=== PATIENT | female | born 1950 | race Caucasian/White ===

== ENCOUNTER 2023-07-07 19:12 | Inpatient (IN) | payer OTHER, SELFPAY ==
[2023-07-07 14:45] VITALS: BP 139/88; PULSE 103; RESP 18; TEMP 36.6; O2SAT 98
[2023-07-07 15:09] VITALS: BMI 32.7
[2023-07-07 15:30] VITALS: BP 144/99; PULSE 99; RESP 16; TEMP 36.7; O2SAT 98
--- NOTE | 2023-07-07 19:14 | PCM.HP.STD ---
HPI - General General Date of Admission: 07/07/23 HPI Narrative DEBBIE CARDENAS, is a 72 F who presents to the hospital with palpitations for about 1 week. She presented to an outside hospital and was there overnight pending transfer to a different facility and was found to be in A-fib with RVR. She was started on a heparin drip as well as a Cardizem drip and this morning was excepted and transferred to our hospital. She denies any palpitations currently and it appears that her RVR had resolved though she is still in A-fib. They were able to do an echo at the outside hospital which was reported as normal however still trying to obtain the report for verification. She does have a history of hypertension but she does not take any blood pressure medications because it made her feel funny. [facility], [facility] Medical History (Updated 07/07/23 @ 19:[address] Cristiano Matamoros MD) Hypertension Allergy/AdvReac Type Severity Reaction Status Date / Time No Known Allergies Allergy Verified 07/07/23 15:29 Family History (Updated 07/07/23 @ 19:[address] Crisitano Matamoros MD) Other Heart disease Family History no significant family his Surgical History no surgical history no surgical history Social History Smoking Status: Never smoker ROS Constitutional Constitutional: Denies chills, fatigue, fever(s) or malaise Eyes Eyes: Denies blurry vision ENT HEENT: Denies headache(s) or nasal discharge Cardiovascular Cardiovascular: Reports palpitations; Denies chest pain, dyspnea on exertion or syncope Respiratory/Chest Respiratory/Chest: Denies cough, shortness of breath at rest or shortness of breath with exertion Gastrointestinal Gastrointestinal: Denies constipation, diarrhea, nausea or vomiting Genitourinary Genitourinary: Denies dysuria Neurologic Neurologic: Denies focal weakness, numbness or tremor(s) Psychiatric Psychiatric: Denies anxiety or depression Vital Signs Vital Signs Vital Signs: 07/07/23 14:45 07/07/23 15:30 Temperature 97.8 F 98.1 F Temperature Source Temporal Oral Pulse Rate 103 H 99 Respiratory Rate 18 16 Blood Pressure 139/88 H 144/99 H Blood Pressure Mean 105 114 Blood Pressure Source Monitor Monitor Blood Pressure Position Semi-Fowlers Sitting Blood Pressure Location Left Arm Left Arm Pulse Ox 98 98 Oxygen Delivery Method Room Air Room Air Weight Weight: 196 lb 13.965 oz Body Mass Index (BMI) 32.7 Physical Exam Narrative General: Alert, Oriented x3, Cooperative, No apparent distress HEENT: Atraumatic, PERRLA, EOMI, Normocephalic Oral: Moist Mucosa Neck: Supple, No JVD Lungs: Diminished, Normal air movement, No rhonchi, No wheeze, No rales Cardiovascular: Irregular rate and rhythm, Normal S1, Normal S2, No murmurs Abdomen: Soft, Non Tender, Non-Distended, No Hepato-splenomegaly Extremities: No edema, Capillary Refill Less than 3 Seconds Skin: No rashes, No breakdown Musculoskeletal: No Tenderness to Palpation of Joints or Extremities Neurological: Cranial nerves II-XII grossly intact, Motor Exam 5/5 strength throughout, Sensory exam intact to light touch and pain Psych/Mental Status: Normal Affect, Appropriate Assessment & Plan Assessment/Plan (1) New onset a-fib: PLAN: Plan 1. New onset A-fib with RVR ? Currently out of RVR though still in A-fib ? Continue with Coreg twice daily ? Given her age and her gender and her history of hypertension we will start her on twice daily dosing of Eliquis ? Outside lab work demonstrated normal TSH and her potassium has been replaced this morning it was 2.9 will monitor tomorrow, phosphorus and magnesium were also normal DVT: Eliquis 78 minutes was spent on direct patient care, including documentation as well as chart review and collaboration with colleagues Charges/Coding Visit Charges Inpatient E&M: 12032 Init Hosp L3
[2023-07-07] MEDS: Carvedilol 6.25 MG Tablet PO (21:03)
[2023-07-07] MEDS: APIXABAN 5 MG TABLET PO (21:03)
[2023-07-07 21:59] VITALS: BP 145/105; PULSE 85; RESP 16; TEMP 36.3; O2SAT 94
[2023-07-08 04:00] VITALS: BP 151/110; PULSE 86; RESP 18; TEMP 36.1; O2SAT 95
[2023-07-08 06:05] LABS: Absolute Lymphocyte Count 1.36 X10^3/uL (0.83-4.51); Absolute Neutrophil Count 3.5 X10^3/uL (2.0-7.7); Basophil# 0.03 X10^3/uL; Basophil% 0.5 % (0-1); Eosinophil# 0.13 X10^3/uL; Eosinophils% 2.4 % (0-5); Hematocrit 38.5 % (37-47); Hemoglobin 12.5 g/dL (12.0-15.0); Lymphocyte # 1.36 X10^3/ul (0.83-4.51); Lymphocyte % 24.7 % (19-41); Mean Corp Hgb Conc 32.5 g/dL (32-36); Mean Corpuscular Hgb 29.1 pg (27.0-32.0); Mean Corpuscular Volume 89.5 fL (81-99); Mean Platelet Vol. 11.3 fl (6.2-12.0); Monocyte# 0.48 X10^3/uL; Monocyte% 8.7 % (0-10); NRBC Flagged by Analyzer 0 % (0-5); Neutrophil # 3.49 X10^3/uL (2.7-7.7); Neutrophil % 63.5 % (47-70); Platelet Count 173 K/mm3 (150-450); RBC Distribution Width CV 14.4 % (11.6-14.6); RBC Distribution Width SD 46.4 fl (35.1-43.9); White Blood Count 5.5 K/mm3 (4.4-11.0)
[2023-07-08 07:03] LABS: Anion Gap 5 (5-15); BUN 14 mg/dL (7-18); BUN/Creat Ratio 19.9 RATIO (10-20); Calcium,Total 8.5 mg/dL (8.5-10.1); Chloride 108 mmol/L (98-107); EST Glomerular Filtration Rate 87 mL/min (>60); Est Glom Filt Rate - Afr Amer 105 mL/min (>60); Estimated Creatinine Clearance 46.43 ml/min; Glucose 118 mg/dL (74-106); Potassium 2.7 mmol/L (3.5-5.1); Sodium Level 141 mmol/L (136-145)
[2023-07-08 09:50] VITALS: BP 161/88; PULSE 105; RESP 18; TEMP 36.7; O2SAT 96
[2023-07-08] MEDS: Potassium Chloride Oral Tablet 20 MEQ 80 MEQ PO (09:55)
[2023-07-08] MEDS: Carvedilol 12.5 MG Tablet PO (09:56)
[2023-07-08] MEDS: APIXABAN 5 MG TABLET PO (09:56)
--- NOTE | 2023-07-08 10:30 | CASEMGMT ---
SEEMA FLOREZ Discharge Planning Assessment: Face to Face with patient for initial transition planning/care coordination assessment. SEEMA FLOREZ introduced self and role at [facility], pt alert, voices understanding and is agreeable to participating in the assessment with her son at bedside. Care providers, pharmacy, and demographics verified. Admitting dx: Afib PCP: Dariel Specialists: none Preferred Pharmacy: [facility] in [place] Insurance: [employer] Prescription Benefit: yes LNOK: spouse, son Tobi Living Arrangements: Pt lives with her spouse and handicapped 39yo daughter in a single story home with one small step to enter. Pt states she is independent with all ADLs including self care and household tasks. Transportation: Pt's daughter transports her when needed or they use their golf cart to go short distances DME: none HHC/SNF: denies any previous providers Discussed new prescription for Eliquis and 30 day free card provided to pt. Plan: Return home with the support of her family Annette Kellogg RN CM
--- NOTE | 2023-07-08 13:10 | PN.HOSP_ITS ---
Reason for Visit Reason for Visit: Diagnoses Unspecified atrial fibrillation (07/07/23) Subjective Subjective Patient seen at bedside this morning, son present. Patient was resting comfortably in bed, had no acute concerns. She feels well and ready to go home. She reports intermittent palpitations but is much improved from prior to this admission. She has been tolerating the beta-noel medication well. She denies any lightheadedness or dizziness with standing. Denies any chest pain, shortness of breath or fevers/chills. No other acute concerns. Objective Data Objective Data Vital Signs: Vital Signs Temp Pulse Resp BP Pulse Ox O2 Del Method 98.1 F 105 H 18 161/88 H 96 Nasal Cannula 07/08/23 09:50 07/08/23 09:50 07/08/23 09:50 07/08/23 09:50 07/08/23 09:50 07/08/23 09:50 Oxygen Delivery Method Nasal Cannula Weight: 89.3 kg Body Mass Index (BMI) 32.7 Intake & Output: Intake and Output for Last 24 Hours 07/06/23 07/07/23 07/08/23 23:59 23:59 23:59 Intake Total 240 / 240 Balance 240 / 240 Lab / Micro Data Attestation: I reviewed the patient's lab results. 07/08/23 05:35 07/08/23 05:35 Labs: Laboratory Results - last 24 hr 07/08/23 05:35: WBC 5.5, RBC 4.30, Hgb 12.5, Hct 38.5, MCV 89.5, MCH 29.1, MCHC 32.5, RDW Std Deviation 46.4 H, RDW Coeff of Florin 14.4, Plt Count 173, MPV 11.3, Immature Gran % (Auto) 0.200, Neut % (Auto) 63.5, Lymph % (Auto) 24.7, Esmeralda % (Auto) 8.7, Eos % (Auto) 2.4, Baso % (Auto) 0.5, Absolute Neuts (auto) 3.5, Absolute Lymphs (auto) 1.36, Nucleated RBC % 0, Sodium 141, Potassium 2.7 L*, Chloride 108 H, Carbon Dioxide 28.0, Anion Gap 5, BUN 14, Creatinine 0.70, Estim Creat Clear Calc 46.43, Est GFR (MDRD) Af Amer 105, Est GFR (MDRD) Non-Af 87, BUN/Creatinine Ratio 19.9, Glucose 118 H, Calcium 8.5 Physical Exam Const alert, oriented x3, no apparent distress, average body habitus, no limitations, healthy appearing and well nourished Constitutional Narrative: Pleasant elderly female, resting comfortably in bed, conversing normally, no acute distress. General Appearance: cooperative, comfortable, well kempt and well developed HEENT normocephalic, head/scalp atraumatic, hearing grossly normal bilaterally, nasal mucous membranes and turbinates normal and moist oral mucous membranes Eyes PERRL, EOMs intact bilaterally and conjunctivae normal Neck full ROM and supple Chest inspection of chest normal Resp normal respiratory effort, normal air movement, no use of accessory muscles and clear to auscultation bilaterally Cardio no murmurs and peripheral pulses 2+ throughout Cardio Narrative: Irregular rhythm noted, rate controlled. GI normal to inspection, nondistended, normoactive bowel sounds, soft to palpation, non-tender and non-distended Back/Spine normal ROM Extremity normal to inspection, full ROM and no pedal edema Skin no rashes or lesions noted Psych mental status grossly normal Assessment & Plan Assessment/Plan (1) New onset a-fib: PLAN: Plan Patient is a 72-year-old female with no significant past medical history who initially presented to an outside hospital for a 1 week history of palpitations. Was found to have new onset A-fib with RVR, was transferred to [facility] on 07/07 for further management. 1. New onset A-fib with RVR -Initiated on a Cardizem drip at outside hospital with good rate control. S tarted on Coreg twice daily on admission here. Remains in A-fib but is rate controlled. TSH normal. [id number] score of 3, started on Eliquis twice daily here. Remains hypertensive as noted below. Will discharge home on Coreg 12.5 twice daily and Eliquis twice daily. She will need follow-up with her PCP in 1 to 2 weeks. Can consider outpatient cardiology consultation at that time but suspect patient will be well managed with rate control and anticoagulation. 2. Hypertension -Patient reports history of hypertension, was started on antihypertensives by her PCP several years ago but did not consistently take them. BP remains elevated here to the 150s to 160s systolic on Coreg. Increased Coreg dose to 12.5 twice daily as noted above. Suspect patient may need a second antihyperten sive medication but will defer this to her PCP, as she is hesitant to start too many new medications. 3. Hypokalemia -Potassium was 2.9 at outside hospital, was reportedly repleted there. Potassium this morning was 2.7. Magnesium and phosphorus were normal. Patient given 80 mill equivalents of potassium this morning. Repeat BMP pending, if good improvement patient will be okay for discharge. Recommend repeating BMP in 1 to 2 weeks prior to follow-up with PCP for recheck. DVT prophylaxis: Eliquis CODE STATUS: Full code, verified Total clinical time spent by myself addressing the patient's medical issues, reviewing all of the data, and collaborating with patient's care team: 35 minute s. Charges/Coding Visit Charges Inpatient E&M: 50464 Subs Hosp L2
--- NOTE | 2023-07-08 13:26 | DCINST_ITS ---
Discharge Instructions Diet Discharge Diet: No restrictions Activity Discharge Activity: Return to Normal Activity Weight Bearing Status: Full weight bearing Follow Up Care Test Results: Test results from this visit will be discussed in further detail at your follow- up appointment, if applicable. Discharge Plan Admission Admit Date/Time: 07/07/23 19:12 Primary Reason for Your Visit: A-fib with RVR Attending Provider: Korey Yen Consulting Providers: Cristiano Matamoros Instructions Additional Instructions / Restrictions: Please take Coreg and Eliquis twice daily as prescribed. Follow-up with your primary care provider in the office in 1 to 2 weeks. Discharge Orders/Prescriptions Prescriptions: New carvedilol 12.5 mg Tablet 12.5 mg PO BID 60 Days Qty: 120 0RF Eliquis 5 mg tablet 5 mg PO BID 60 Days Qty: 120 0RF Disposition Disposition (needs filled in before D/C Order can be placed): Home, Self Care
--- NOTE | 2023-07-08 13:26 | PCM.DC.SUM ---
Providers Date of Admission: 07/07/23 Date of Discharge: 07/08/23 Reason For Visit: A-FIB Diagnosis Discharge Diagnosis (1) New onset a-fib: Status: Acute Code(s): I48.91 - Unspecified atrial fibrillation Plan 1. New onset A-fib with RVR -Initiated on a Cardizem drip at outside hospital with good rate control. Started on Coreg twice daily on admission here. Remains in A-fib but is rate controlled. TSH normal. [id number] score of 3, started on Eliquis twice daily here. Remains hypertensive as noted below. Will discharge home on Coreg 12.5 twice daily and Eliquis twice daily. She will need follow-up with her PCP in 1 to 2 weeks. Can consider outpatient cardiology consultation at that time but suspect patient will be well managed with rate control and anticoagulation. 2. Hypertension -Patient reports history of hypertension, was started on antihypertensives by her PCP several years ago but did not consistently take them. BP remains elevated here to the 150s to 160s systolic on Coreg. Increased Coreg dose to 12.5 twice daily as noted above. Suspect patient may need a second antihypertensive medication but will defer this to her PCP, as she is hesitant to start too many new medications. 3. Hypokalemia -Potassium was 2.9 at outside hospital, was reportedly repleted there. Potassium this morning was 2.7. Magnesium and phosphorus were normal. Patient given 80 mill equivalents of potassium this morning. Repeat BMP pending, if good improvement patient will be okay for discharge. Recommend repeating BMP in 1 to 2 weeks prior to follow-up with PCP for recheck. Medications at Discharge Home Medications apixaban 5 mg tablet (Eliquis) 5 mg PO BID 60 days #120 tabs 07/08/23 carvedilol 12.5 mg tablet 12.5 mg PO BID 60 days #120 tabs 07/08/23 Hospital Course Summary of Care Provided Minutes Spent on Discharge: 35 Hospital Course: Patient is a 72-year-old female with no significant past medical history who initially presented to an outside hospital for a 1 week history of palpitations. Was found to have new onset A-fib with RVR, initiated on cardizem drip and heparin drip and then was transferred to [facility] on 07/07 for further management. Was rate controlled on admission here. Initiated on Coreg twice daily and Eliquis twice daily and tolerated these well. Did not require an inpatient cardiology consultation, recommend outpatient consultation. Discharged home in stable condition. Physical Exam Const alert, oriented x3, no apparent distress, average body habitus, no limitations, healthy appearing and well nourished Constitutional Narrative: Pleasant elderly female, resting comfortably in bed, conversing normally, no acute distress. General Appearance: cooperative, comfortable, well kempt and well developed HEENT normocephalic, head/scalp atraumatic, hearing grossly normal bilaterally, nasal mucous membranes and turbinates normal and moist oral mucous membranes Eyes PERRL, EOMs intact bilaterally and conjunctivae normal Neck full ROM and supple Chest inspection of chest normal Resp normal respiratory effort, normal air movement, no use of accessory muscles and clear to auscultation bilaterally Cardio no murmurs and peripheral pulses 2+ throughout Cardio Narrative: Irregular rhythm noted, rate controlled. GI normal to inspection, nondistended, normoactive bowel sounds, soft to palpation, non-tender and non-distended Back/Spine normal ROM Extremity normal to inspection, full ROM and no pedal edema Skin no rashes or lesions noted Psych mental status grossly normal Weight / BMI Weight Weight: 89.3 kg Body Mass Index (BMI) 32.7 ABG / Lab / Microbiology Data 07/08/23 05:35 07/08/23 13:30 Laboratory: Laboratory Results - last 24 hr 07/08/23 05:35: WBC 5.5, RBC 4.30, Hgb 12.5, Hct 38.5, MCV 89.5, MCH 29.1, MCHC 32.5, RDW Std Deviation 46.4 H, RDW Coeff of Florin 14.4, Plt Count 173, MPV 11.3, Immature Gran % (Auto) 0.200, Neut % (Auto) 63.5, Lymph % (Auto) 24.7, Rowan % (Auto) 8.7, Eos % (Auto) 2.4, Baso % (Auto) 0.5, Absolute Neuts (auto) 3.5, Absolute Lymphs (auto) 1.36, Nucleated RBC % 0, Sodium 141, Potassium 2.7 L*, Chloride 108 H, Carbon Dioxide 28.0, Anion Gap 5, BUN 14, Creatinine 0.70, Estim Creat Clear Calc 46.43, Est GFR (MDRD) Af Amer 105, Est GFR (MDRD) Non-Af 87, BUN/Creatinine Ratio 19.9, Glucose 118 H, Calcium 8.5 D/C Instructions Additional Instructions: Please take Coreg and Eliquis twice daily as instructed. Recommend that you have a BMP ordered by your PCP to follow-up on your low potassium in 1 to 2 weeks. Pending Tests Upon Discharge: None Meaningful Use Info Meaningful Use Diagnoses (Choose all that apply): None applicable Discharge Plan Admission Admit Date/Time: 07/07/23 19:12 Primary Reason for Your Visit: A-fib with RVR Attending Provider: Korey Yen Consulting Providers: Cristiano Matamoros Instructions Additional Instructions / Restrictions: Please take Coreg and Eliquis twice daily as prescribed. Follow-up with your primary care provider in the office in 1 to 2 weeks. Discharge Orders/Prescriptions Prescriptions: New carvedilol 12.5 mg Tablet 12.5 mg PO BID 60 Days Qty: 120 0RF Eliquis 5 mg tablet 5 mg PO BID 60 Days Qty: 120 0RF Disposition Disposition (needs filled in before D/C Order can be placed): Home, Self Care Charges/Coding Visit Charges Inpatient E&M: 29569 Disch Hosp >30min
[2023-07-08 13:51] LABS: Anion Gap 5 (5-15); BUN 14 mg/dL (7-18); BUN/Creat Ratio 15.1 RATIO (10-20); Calcium,Total 8.9 mg/dL (8.5-10.1); Chloride 109 mmol/L (98-107); Creatinine, Serum 0.93 mg/dL (0.55-1.02); EST Glomerular Filtration Rate 63 mL/min (>60); Est Glom Filt Rate - Afr Amer 76 mL/min (>60); Estimated Creatinine Clearance 49.93 ml/min; Glucose 115 mg/dL (74-106); Potassium 3.3 mmol/L (3.5-5.1); Sodium Level 142 mmol/L (136-145)
[2023-07-08 14:19] VITALS: BP 161/88; PULSE 85; RESP 18; TEMP 36.7; O2SAT 96
== END 2023-07-08 15:18 | disposition home or self-care (01) | DRG 310 ==
PROVIDERS: Admitting Provider Family Medicine; PCP Family Medicine; Visit Provider Hospitalist
DX: I48.91 Unspecified atrial fibrillation (principal); E87.6 Hypokalemia; I10 Essential (primary) hypertension
CPT/HCPCS: 36415; 80048; 85025